=== PATIENT | male | born 1945 | race Two or more races ===

== ENCOUNTER 2022-04-25 17:07 | Emergency (ER) | payer OTHER ==
[~2022-04-25] VITALS: Ht 165.1 cm; Wt 68.0 kg
[2022-04-25] MEDS ORDERED: COZAAR100 MG (17:35)
== END 2022-04-25 21:38 | disposition home or self-care (01) ==
LOC: ER 17:07
DX: S30.0XXA Contusion of lower back and pelvis, initial encounter (principal); W18.30XA Fall on same level, unspecified, initial encounter; Y93.9 Activity, unspecified; Y92.018 Other place in single-family (private) house as the place of occurrence of the external cause; Y99.9 Unspecified external cause status; I10 Essential (primary) hypertension

== ENCOUNTER 2023-04-30 07:46 | Outpatient (CLI) | payer OTHER ==
[~2023-04-30 07:46] MED LIST: COZAAR100 MG
== END 2023-04-30 08:11 | disposition home or self-care (01) ==
LOC: TOM 07:46
PROVIDERS: ATTEND Internal Medicine Cardiovascular Disease
DX: R94.4 Abnormal results of kidney function studies (principal); R05.9 Cough, unspecified; R06.2 Wheezing

== ENCOUNTER 2023-05-04 07:56 | Outpatient (CLI) | payer OTHER | END 2023-05-04 13:12 | disposition home or self-care (01) | LOC: SONOGRAMA 07:56 | PROVIDERS: ATTEND Internal Medicine | DX: R94.4 Abnormal results of kidney function studies (principal) ==

== ENCOUNTER 2023-05-28 11:40 | Outpatient (CLI) | payer OTHER | END 2023-05-28 11:45 | disposition home or self-care (01) | LOC: NUCLEAR 11:40 | PROVIDERS: ATTEND Internal Medicine | DX: I73.9 Peripheral vascular disease, unspecified (principal) ==

== ENCOUNTER 2023-05-28 12:57 | Outpatient (CLI) | payer OTHER | END 2023-05-28 13:09 | disposition home or self-care (01) | LOC: SONOGRAMA 12:57 | PROVIDERS: ATTEND Internal Medicine | DX: E04.8 Other specified nontoxic goiter (principal) ==

== ENCOUNTER 2023-12-16 14:17 | Outpatient (CLI) | payer OTHER | END 2023-12-16 14:31 | disposition home or self-care (01) | LOC: TOM 14:17 | PROVIDERS: ATTEND Internal Medicine Pulmonary Disease | DX: R06.02 Shortness of breath (principal) ==

== ENCOUNTER 2025-01-16 20:00 | Emergency (ER) | payer OTHER ==
[~2025-01-16] VITALS: Ht 170.2 cm; Wt 72.6 kg
[2025-01-16] MEDS ORDERED: PEPCID AC20 MG PO (21:03)
[2025-01-16] MEDS ORDERED: ROSUVASTATIN CA10 MG PO (21:03)
[2025-01-16] MEDS ORDERED: AMLODIPINE-OLM1 EAC2 PO (21:03)
[2025-01-16] MEDS ORDERED: TIMOLOL MALEATE5 M4 OPHT (21:04)
[2025-01-16] MEDS ORDERED: ENALAPRILAT DIHYDRATE 1.25 MG/ML VIAL IV ONE ×2 (21:41→21:45)
[2025-01-16 22:09] LABS: HEMATOCRIT 42.7 % (39.0-48.0); MEAN CELL VOLUME 94.3 fL (80.0-100.00); MEAN CORPUSCULAR HEMOGLOBIN 30.8 pg (27.00-32.0); MEAN CORPUSCULAR HGB CONC 32.7 g/dl (32.0-36.0); PLATELET COUNT 134 K/uL (150-450); RED BLOOD COUNT 4.53 M/uL (4.00-6.00)
[2025-01-16 22:28] LABS: ALBUMIN 3.5 gm/dL (3.4-5.0); BILIRUBIN TOTAL 0.36 mg/dL (0.3-1.2); CALCIUM 8.9 mg/dL (8.5-10.1); CREATININE SERUM 1.36 mg/dL (0.70-1.30); GFR 50.29; GLOBULINA 4.3 G/DL (2.4-3.5); POTASSIUM 4.45 mEq/L (3.5-5.1); TOTAL PROTEIN 7.8 gm/dL (6.4-8.2)
== END 2025-01-16 23:17 | disposition home or self-care (01) ==
LOC: ER 20:02
PROVIDERS: General Practice
DX: I16.9 Hypertensive crisis, unspecified (principal); I10 Essential (primary) hypertension